=== PATIENT | male | born 1950 | race Caucasian/White ===

== ENCOUNTER 2016-08-14 05:21 | Day surgery (SDC) | payer OTHER ==
[2016-08-14] MEDS ORDERED: ceFAZolin 2 GM/DEXTROSE 100 ML IV ONE (06:00)
[2016-08-14] MEDS ORDERED: BUPIVACAINE 0.5% 30 ML SDV ONE (06:44)
[2016-08-14] MEDS ORDERED: MIDAZOLAM 2 MG/2 ML VIAL ONE (07:04)
[2016-08-14] MEDS ORDERED: PROPOFOL/EMULSION 500 MG/50 ML BOTTLE IV ONE (07:20)
[2016-08-14] MEDS ORDERED: REMIFENTANIL HCL 1 MG VIAL ONE (07:20)
[2016-08-14] MEDS ORDERED: DEXAMETHASONE 4 MG/ML VIAL ONE (07:20)
[2016-08-14] MEDS ORDERED: fentaNYL 100 MCG/2 ML INJ ONE (07:20)
[2016-08-14] MEDS ORDERED: ONDANSETRON 4 MG/2 ML VIAL ONE (07:20)
[2016-08-14] MEDS ORDERED: LIDOCAINE 2% 100 MG/5 ML SYR ONE (07:21)
[2016-08-14] MEDS ORDERED: KETOROLAC 30 MG/1 ML SDV ONE (07:44)
[2016-08-14] MEDS ORDERED: THROMBIN (BOVINE) 5,000 UNIT VIAL TP ONE (07:53)
[2016-08-14] MEDS ORDERED: epHEDrine SULFATE 10 MG/ML SYR ONE ×2 (07:56→08:10)
[2016-08-14] MEDS ORDERED: OXYCODONE/APAP 5/325 TAB ONE (09:46)
== END 2016-08-14 09:55 | disposition home or self-care (01) ==
LOC: FSGY 05:21
PROVIDERS: ATTEND Surgery
PROC: 0JB70ZX Excision of Back Subcutaneous Tissue and Fascia, Open Approach, Diagnostic (ICD-10-PCS; principal; 2016-08-14 07:15)
DX: L72.0 Epidermal cyst (principal); E78.5 Hyperlipidemia, unspecified; E11.9 Type 2 diabetes mellitus without complications; I10 Essential (primary) hypertension; G47.33 Obstructive sleep apnea (adult) (pediatric); D80.1 Nonfamilial hypogammaglobulinemia
CPT/HCPCS: J0690; J1100; J1885; J2001; J2250; J2405; J2704; J3010

== ENCOUNTER 2017-03-24 19:18 | Emergency (ER) | payer OTHER ==
[2017-03-24 19:27] VITALS: BP 178/102; PULSE 67; RESP 16; TEMP 98.4; O2SAT 92
--- NOTE | 2017-03-24 19:37 | EDPHY ---
H & P Stated Complaint: L arm pain ?pinched nerve Time Seen by Provider: 03/24/17 19:36 HPI/ROS: CHIEF COMPLAINT: Left forearm pain HISTORY OF PRESENT ILLNESS: Patient presents to the ED with complaints of acute left forearm pain began earlier in the day. The patient reports his pain is reproducible, it is worsened with palpation, it is worsened with movement. It is primarily located in his forearm, proximal to his wrist joint. The patient denies any acute numbness. The patient has had a history of episodic pain in his arm and shoulder in the past attributed to a musculoskeletal source. The patient denies any history of fall or trauma. He does have a significant past medical history including gammaglobulin anemia as well as a history of a pituitary tumor which is closely followed at the [facility]. The patient denies any chest pain or shortness of breath. He denies fever, he denies erythema or significant soft tissue swelling. REVIEW OF SYSTEMS: A comprehensive 10 point review of systems is otherwise negative aside from elements mentioned in the history of present illness. Source: Patient Exam Limitations: No limitations - Personal History Current Tetanus/Diphtheria Vaccine: Unsure Current Tetanus Diphtheria and Acellular Pertussis (TDAP): Unsure - Medical/Surgical History Hx Asthma: No Hx Chronic Respiratory Disease: Yes Hx Diabetes: No Hx Cardiac Disease: No Hx Renal Disease: No Hx Cirrhosis: No Hx Alcoholism: No Hx HIV/AIDS: No Hx Splenectomy or Spleen Trauma: No Other PMH: pituitary tumor, acromegly, sleep apnea, anemia, w/ infusions, COPD , PNA, HTN, high chol - Social History Smoking Status: Never smoked - Physical Exam Exam: General Appearance: Alert, no distress Respiratory: There are no retractions, lungs are clear to auscultation Cardiovascular: Regular rate and rhythm Gastrointestinal: Nontender Neurological: Sensation intact to light touch throughout the left upper extremity Skin: Warm and dry, no rashes Musculoskeletal: Tenderness to palpation noted in the left forearm both along the radial and medial aspects of the forearm, no palpable mass, erythema or fluctuance noted. Patient does have some increasing pain with pronation supination. Examination of the shoulder joint demonstrates a normal rotator cuff function. There is no clinical evidence of a septic arthritis. Constitutional: Initial Vital Signs Temperature (C) 36.9 C 03/24/17 19:22 Heart Rate 67 03/24/17 19:22 Respiratory Rate 16 03/24/17 19:22 Blood Pressure 178/102 H 03/24/17 19:22 O2 Sat (%) 92 03/24/17 19:22 O2 Delivery Mode Room Air Allergies/Adverse Reactions: No Known Allergies Allergy (Verified 08/12/16 14:51) Home Medications: Medication Instructions Recorded ATENOLOL 04/07/10 Rasheeda 04/07/10 CRESTOR 04/07/10 LISINOPRIL 04/07/10 Sandostatin 04/07/10 Aspirin 81mg (*) 08/12/16 Lunesta 08/12/16 Medical Decision Making ED Course/Re-evaluation: The patient presents to the ED with a likely musculoskeletal source of pain in his left forearm. The patient has no clinical evidence of a septic arthritis, cellulitis or abscess. Patient's pain is reproducible in worsened with movement. I do not feel this represents a referred pain from a cardiac source. The patient has no detectable weakness to suggest a significant cervical radiculopathy. At this point time I will recommend that the patient do ibuprofen 600 mg 3 times a day. The patient has been instructed to return to the ED for increasing pain, redness, swelling, numbness or acute weakness. The patient has been instructed to follow up with our on-call orthopedic surgeon Dr. Hensley for any unimproved symptoms. Departure - Departure Disposition: Home, Routine, Self-Care Clinical Impression: Strain of forearm, left Condition: Good Instructions: Musculoskeletal Pain (ED) Additional Instructions: 1. Take Ibuprofen or Motrin 600 mg by mouth three times a day. 2. Please follow up with your primary care provider for any unimproved symptoms. 3. You have been given the contact number of our on-call orthopedic surgeon who would be happy to see you in follow-up as well. 4. Return to the ED immediately for any increasing pain, redness, swelling, fever or other concerns. Referrals: Chadwick Gonzalez MD [Primary Care Provider] - As per Instructions Pérez Hensley MD [Medical Doctor] - As per Instructions
== END 2017-03-24 20:10 | disposition home or self-care (01) ==
DX: S56.912A Strain of unspecified muscles, fascia and tendons at forearm level, left arm, initial encounter (principal); J44.9 Chronic obstructive pulmonary disease, unspecified; I10 Essential (primary) hypertension; Z79.82 Long term (current) use of aspirin; X58.XXXA Exposure to other specified factors, initial encounter

== ENCOUNTER 2017-08-20 19:30 | Emergency (ER) | payer OTHER ==
--- NOTE | 2017-08-20 20:10 | EDPHY ---
H & P Stated Complaint: R index finger "infection, hx of MRSA-like Time Seen by Provider: 08/20/17 20:01 HPI/ROS: CHIEF COMPLAINT: Finger infection HISTORY OF PRESENT ILLNESS: Patient is a 67-year-old man with a history of MRSA infections who comes to the emergency department complaining of an infection around the fingernail of his right index finger. He 1st noticed it yesterday. He has not had a fever. He came to get it drained because he has a history of bad infections. He has never had 1 around his finger before. REVIEW OF SYSTEMS: Constitutional: denies: chills, fever, recent illness, recent injury EENTM: denies: blurred vision, double vision, nose congestion Respiratory: denies: cough, shortness of breath Cardiac: denies: chest pain, irregular heart rate, lightheadedness, palpitations Gastrointestinal/Abdominal: denies: abdominal pain, diarrhea, nausea, vomiting, blood streaked stools Genitourinary: denies: dysuria, frequency, hematuria, pain Musculoskeletal: denies: joint pain, muscle pain Skin: See HPI Neurological: denies: headache, numbness, paresthesia, tingling, dizziness, weakness Hematologic/Lymphatic: denies: blood clots, easy bleeding, easy bruising Immunologic/allergic: denies: HIV/AIDS, transplant EXAM: GENERAL: Well-appearing, well-nourished and in no acute distress. HEAD: Atraumatic, normocephalic. EYES: Pupils equal round and reactive to light, extraocular movements intact, sclera anicteric, conjunctiva are normal. ENT: TMs normal, nares patent, oropharynx clear without exudates. Moist mucous membranes. NECK: Normal range of motion, supple without lymphadenopathy or JVD. LUNGS: Breath sounds clear to auscultation bilaterally and equal. No wheezes rales or rhonchi. HEART: Regular rate and rhythm without murmurs, rubs or gallops. ABDOMEN: Soft, nontender, normoactive bowel sounds. No guarding, no rebound. No masses appreciated. BACK: No CVA tenderness, no spinal tenderness, step-offs or deformities EXTREMITIES: Paronychia to right index finger lateral aspect. Normal range of motion, no pitting or edema. No clubbing or cyanosis. NEUROLOGICAL: Cranial nerves II through XII grossly intact. Normal speech, normal gait. 5/5 strength, normal movement in all extremities, normal sensation PSYCH: Normal mood, normal affect. SKIN: See above, Warm, dry, normal turgor, no visible rashes or lesions. Source: Patient Exam Limitations: No limitations - Personal History Current Tetanus Diphtheria and Acellular Pertussis (TDAP): Yes - Medical/Surgical History Hx Asthma: No Hx Chronic Respiratory Disease: Yes Hx Diabetes: No Hx Cardiac Disease: No Hx Renal Disease: No Hx Cirrhosis: No Hx Alcoholism: No Hx HIV/AIDS: No Hx Splenectomy or Spleen Trauma: No Other PMH: pituitary tumor, acromegly, sleep apnea, anemia, w/ infusions, COPD , PNA, HTN, high chol - Family History Significant Family History: No pertinent family hx - Social History Smoking Status: Never smoked Alcohol Use: Sober Drug Use: None Constitutional: Initial Vital Signs Temperature (C) 37.3 C 08/20/17 19:45 Heart Rate 68 08/20/17 19:45 Respiratory Rate 18 08/20/17 19:45 Blood Pressure 153/82 H 08/20/17 19:45 O2 Sat (%) 94 08/20/17 19:45 O2 Delivery Mode Room Air Allergies/Adverse Reactions: No Known Allergies Allergy (Verified 08/20/17 19:44) Home Medications: Medication Instructions Recorded ATENOLOL 04/07/10 Rasheeda 04/07/10 CRESTOR 04/07/10 LISINOPRIL 04/07/10 Sandostatin 04/07/10 Aspirin 81mg (*) 08/12/16 Lunesta 08/12/16 Sulfamethox/Tmp 800/160 mg 1 tab PO BID #14 tab 08/20/17 [Bactrim Ds] Medical Decision Making Procedures: Procedure: Abscess drainage. The patient's abscess was located on the finger. I obtained verbal consent from the patient to drain the abscess who was informed about the possibility of bleeding and pain. The abscess was incised with scissors and 2 cc of purulent drainage was expressed. I irrigated the wound and placed some packing. The patient tolerated the procedure well. The procedure was performed by myself. ED Course/Re-evaluation: 8:30 p.m. the patient is grateful. He would like to avoid antibiotics but because of his history I will prescribe him some Bactrim that he should begin taking in a day or 2 if he begins to show signs of worsening infection. He agrees with this plan. - Data Points Medications Given: Discontinued Medications Ibuprofen (Motrin) 800 mg PO EDNOW ONE Stop: 08/20/17 20:39 Last Admin: 08/20/17 20:49 Dose: 800 mg Departure - Departure Disposition: Home, Routine, Self-Care Clinical Impression: Paronychia of finger Qualifiers: Laterality: right Qualified Code(s): L03.011 - Cellulitis of right finger Condition: Fair Instructions: Paronychia (ED) Referrals: Daina Mendes MD [Primary Care Provider] - As per Instructions Prescriptions: Sulfamethox/Tmp 800/160 mg [Bactrim Ds] 1 tab PO BID #14 tab
[2017-08-20] MEDS ORDERED: IBUPROFEN 800 MG TAB PO ONE (20:38)
[2017-08-20 20:56] VITALS: BP 152/88
== END 2017-08-20 20:55 | disposition home or self-care (01) ==
PROC: 0H9FXZZ Drainage of Right Hand Skin, External Approach (ICD-10-PCS; principal; 2017-08-20)
DX: L03.011 Cellulitis of right finger (principal); I10 Essential (primary) hypertension; J44.9 Chronic obstructive pulmonary disease, unspecified; Z79.82 Long term (current) use of aspirin